=== PATIENT | female | born 1970 | race Caucasian/White ===

== ENCOUNTER 2020-03-22 07:54 | Emergency (ER) | payer OTHER ==
[~2020-03-22] VITALS: Ht 165.1 cm; Wt 65.8 kg
[~2020-03-22 07:54] MED LIST: ACETAMINOPHEN-O1 TAB PO; AMOXICILLIN500 MG PO; ANAPROX DS550 MG PO; AUGMENTIN 875 M1 TAB PO; BACTRIM DS 8001 TA1 PO; BIAXIN500 MG PO; CEPHALEXIN500 M1 PO; CEPHALEXIN500 MG PO; CIPRODEX 0.3%-7.5 ML OT; CLARITIN10 MG PO; DIFLUCAN150 MG PO; FAMILY PHARMAC325 MG PO; FLEXERIL10 MG PO; HYDROCODONE BIT1 T11 PO; MEDROL DOSEPAK4 MG PO; METOPROLOL SUCC25 M2 PO; MOTRIN800 MG PO; NAPROSYN250 MG PO; NAPROSYN500 MG PO; NKHM; NORCO 325 MG-51 TAB PO; ROBITUSSIN DM120 ML PO; SEPTRA DS 800 M1 TAB PO; TRAMADOL HCL50 MG PO; TRIMOX500 MG PO; ULTRAM50 MG PO; VIBRAMYCIN100 MG PO
[2020-03-22 07:57] VITALS: BP 133/89
== END 2020-03-22 09:56 | disposition home or self-care (01) ==
LOC: ED 07:54
DX: S60.221A Contusion of right hand, initial encounter (principal); Z79.899 Other long term (current) drug therapy; X58.XXXA Exposure to other specified factors, initial encounter; Y93.89 Activity, other specified; Y92.89 Other specified places as the place of occurrence of the external cause; Y99.8 Other external cause status

== ENCOUNTER 2021-08-05 10:52 | Emergency (ER) | payer OTHER ==
[~2021-08-05] VITALS: Ht 165.1 cm; Wt 63.5 kg
[2021-08-05 11:12] VITALS: BP 140/90
[2021-08-05] MEDS ORDERED: IBUPROFEN600 MG PO (13:14)
== END 2021-08-05 13:27 | disposition home or self-care (01) ==
LOC: ED 10:52
DX: S83.92XA Sprain of unspecified site of left knee, initial encounter (principal); Z79.899 Other long term (current) drug therapy; W18.39XA Other fall on same level, initial encounter; Y93.89 Activity, other specified; Y92.89 Other specified places as the place of occurrence of the external cause; Y99.8 Other external cause status

== ENCOUNTER → 2022-02-03 | Outpatient (CLI) | payer OTHER ==
[~2022-02-03] MED LIST changes: +IBUPROFEN600 MG PO
== END | disposition home or self-care (01) ==
LOC: MAMMO 07:14
PROVIDERS: ATTEND Internal Medicine
DX: Z12.31 Encounter for screening mammogram for malignant neoplasm of breast (principal)

== ENCOUNTER → 2022-07-28 | Outpatient (CLI) | payer OTHER ==
[~2022-07-28] MED LIST changes: +ADULT ASPIRIN R81 MG PO; +CETIRIZINE HYDR10 MG PO; +OXYCODONE HCL5 MG PO; +OYSTER SHELL 51 EAC5 PO; +Percocet 325 MG1 TAB PO; +VITAMIN C500 M4 PO
== END | disposition home or self-care (01) ==
LOC: ORTHO 00:59
PROVIDERS: ATTEND Orthopaedic Surgery
DX: M84.459A Pathological fracture, hip, unspecified, initial encounter for fracture (principal)

== ENCOUNTER → 2022-09-08 | Outpatient (CLI) | payer OTHER | END | disposition home or self-care (01) | LOC: ORTHO 02:38 | PROVIDERS: ATTEND Orthopaedic Surgery | DX: M84.451D Pathological fracture, right femur, subsequent encounter for fracture with routine healing (principal); X58.XXXD Exposure to other specified factors, subsequent encounter ==

== ENCOUNTER → 2022-09-24 | Outpatient (CLI) | payer OTHER | END | disposition home or self-care (01) | LOC: RAD 09-20 13:30 | PROVIDERS: ATTEND Orthopaedic Surgery | DX: S72.141D Displaced intertrochanteric fracture of right femur, subsequent encounter for closed fracture with routine healing (principal); M85.88 Other specified disorders of bone density and structure, other site; X58.XXXD Exposure to other specified factors, subsequent encounter ==